=== PATIENT | female | born 1995 | race Caucasian/White ===

== ENCOUNTER 2018-12-18 18:58 | Emergency (ER) | payer OTHER ==
[~2018-12-18] VITALS: Ht 154.9 cm; Wt 136.1 kg
[2018-12-18] MEDS ORDERED: ZYRTEC10 M5 PO (19:11)
[2018-12-18] MEDS ORDERED: ACCUNEB SO1.25 MG/1 INH (19:11)
[2018-12-18] MEDS ORDERED: ZANTAC 150MG T150 MG PO (19:11)
[2018-12-18] MEDS ORDERED: SSD CREAM 1% 5050 GM TOP (20:23)
[2018-12-18 21:59] VITALS: BP 102/52
== END 2018-12-18 22:02 | disposition home or self-care (01) ==
LOC: M.ERS 18:58
DX: G43.909 Migraine, unspecified, not intractable, without status migrainosus (principal); J45.909 Unspecified asthma, uncomplicated; Z88.1 Allergy status to other antibiotic agents; Z91.013 Allergy to seafood; Z91.012 Allergy to eggs; Z91.041 Radiographic dye allergy status; Z88.2 Allergy status to sulfonamides